=== PATIENT | female | born 1950 | race Caucasian/White ===

== ENCOUNTER 2017-12-26 14:57 | Emergency (ER) | payer OTHER, MEDICARE ==
--- NOTE | 2017-12-26 15:18 | CPEKG ---
Heart Rate: 70 RR Interval: 857 P-R Interval: 164 QRSD Interval: 78 QT Interval: 372 QTC Interval: 402 P [place]: 77 QRS [place]: 56 T Wave [place]: 48 EKG Severity - NORMAL ECG - EKG Impression: SINUS RHYTHM Electronically Signed By: Robert Mosquera 28-Dec-2017 12:51:35
--- NOTE | 2017-12-26 15:48 | EDPHY ---
H & P Stated Complaint: chest pain starting yesterday, ashtma symptoms for past week Time Seen by Provider: 12/26/17 15:48 HPI/ROS: CHIEF COMPLAINT: Wheezing HISTORY OF PRESENT ILLNESS: This is a 67-year-old female with a history of reactive airway disease for which she takes Dulera and Xopenex MDI. She went for months without any symptoms but in November had a return of wheezing. She did not have improvement at that time with her usual breathing treatments and ultimately took a round of clindamycin followed by a Z-Clay. She recovered but last week again developed wheezing. She has had worsening of the wheezing over the last few days. She notes some left-sided pain when breathing. She has had a persistent dry cough. No fever. She notes that her Xopenex is not helping her. She has used several times today with no improvement. She continues to use her Dulera twice daily. Although she is reporting some left-sided chest discomfort she feels that it is directly related to her breathing difficulty. She is not concerned about a cardiac problem. She leads an active lifestyle and has no chest pain with exertion. She specifically states that she does not want a cardiac workup. REVIEW OF SYSTEMS: A ten point review of systems was performed and is negative with the exception of the items mentioned in the HPI. Past medical history: Reactive airway disease Social history: She is an amateur freelance photographer. She lives with her partner Micaela who is a doctor of chiropractic. She does not use tobacco or alcohol. She travels extensively and is very active. General Appearance: Alert. Vital signs reviewed. Blood pressure 159/89. Oxygen saturation 92% on room air. Frequent dry cough. Eyes: Pupils equal and round, no conjunctival injection, no discharge. Anicteric. ENT, Mouth: Mucous membranes are moist, no oropharyngeal erythema or edema. Neck: No lymphadenopathy, supple. Respiratory: Expiratory wheezes. Speaking in full sentences. Cardiovascular: Regular rate and rhythm; no murmur, rub, or gallop. Gastrointestinal: Abdomen is soft and nontender, no masses or organomegaly, bowel sounds normal. Skin: Warm and dry, no rashes on exposed skin, normal color. Back: Nontender to palpation over the thoracolumbar spine. Extremities: No lower extremity edema, no calf tenderness or swelling. Neurological: Alert and oriented. Moving all four extremities easily and equally. Psychiatric: Normal affect. - Personal History Current Tetanus/Diphtheria Vaccine: No Current Tetanus Diphtheria and Acellular Pertussis (TDAP): No - Medical/Surgical History Hx Asthma: Yes Hx Chronic Respiratory Disease: No Hx Diabetes: No Hx Cardiac Disease: No Hx Renal Disease: No Hx Cirrhosis: No Hx Alcoholism: No Hx HIV/AIDS: No Hx Splenectomy or Spleen Trauma: No Other PMH: asthma - Social History Smoking Status: Never smoked Constitutional: Initial Vital Signs Temperature (C) 37 C 12/26/17 15:00 Heart Rate 72 12/26/17 15:00 Respiratory Rate 20 12/26/17 15:00 Blood Pressure 159/89 H 12/26/17 15:00 O2 Sat (%) 92 12/26/17 15:00 O2 Delivery Mode Room Air Allergies/Adverse Reactions: acetaminophen [From Tylenol] Allergy (Verified 12/26/17 15:00) aspirin Allergy (Verified 12/26/17 15:00) hydrocortisone [From Solu-Cortef] Allergy (Verified 12/26/17 15:00) pain medications Allergy (Uncoded 12/26/17 15:00) Home Medications: Medication Instructions Recorded Amoxicillin/Clavulanate Pot 875 mg PO BID #14 tab 12/26/17 [Augmentin 875 MG TAB (*)] Azithromycin 250 mg PO DAILY #6 tablet 12/26/17 Dulera 100 Mcg/5 Mcg Inhaler 12/26/17 Xopenex 12/26/17 Medical Decision Making - Diagnostics EKG Interpretation: 12 lead EKG is interpreted in Trace master View by emergency department physician. ED Course/Re-evaluation: Expiratory wheezing in patient with history of reactive airway disease. She has a problem with albuterol and uses Xopenex. A Xopenex nebulizer treatment has been ordered for her. Chest x-ray shows a left lower lobe opacity, likely a pneumonia. She received a Xopenex nebulizer in the emergency department. Exam afterwards shows some continued, but improved, wheezing with good air exchange and no hypoxia. She does not want to take steroids. She will be discharged home on oral antibiotics. She is a good candidate for home treatment of her pneumonia. She will continue with her breathing medications. She will follow up with Dr. Whatley. Danger signs that should prompt her to return to the emergency department were reviewed with her. Differential Diagnosis: Shortness of breath including but not limited to pulmonary infectious process, COPD, asthma, pulmonary embolus and congestive heart failure. - Data Points Medications Given: Discontinued Medications Levalbuterol (Xopenex 1.25mg Neb) 1.25 mg IH EDNOW ONE Stop: 12/26/17 16:47 Last Admin: 12/26/17 17:14 Dose: 1.25 mg Departure - Departure Disposition: Home, Routine, Self-Care Clinical Impression: Pneumonia Qualifiers: Pneumonia type: due to unspecified organism Laterality: left Lung location: lower lobe of lung Qualified Code(s): J18.1 - Lobar pneumonia, unspecified organism Reactive airway disease Qualifiers: Asthma severity: mild Asthma persistence: intermittent Asthma complication type : with acute exacerbation Qualified Code(s): J45.21 - Mild intermittent asthma with (acute) exacerbation Condition: Good Instructions: Asthma (ED), Community Acquired Pneumonia (ED) Additional Instructions: Continue your Dulera and Xopenex breathing treatments. I am prescribing 2 antibiotics, Augmentin and azithromycin. Take these as prescribed. Follow up with Dr. Whatley. Call her office tomorrow to schedule an appointment next week. Return if you have worsening shortness of breath or any new and concerning symptoms. Referrals: Vika Whatley MD [Primary Care Provider] - As per Instructions Prescriptions: Amoxicillin/Clavulanate Pot [Augmentin 875 MG TAB (*)] 875 mg PO BID #14 tab Azithromycin 250 mg PO DAILY #6 tablet
[2017-12-26] MEDS ORDERED: LEVALBUTEROL 1.25 MG/3 ML DEYVIAL IH ONE (16:46)
[2017-12-26 17:33] VITALS: BP 127/77
== END 2017-12-26 17:41 | disposition home or self-care (01) ==
DX: J45.21 Mild intermittent asthma with (acute) exacerbation (principal); J18.1 Lobar pneumonia, unspecified organism

== ENCOUNTER → 2018-06-18 | Outpatient (CLI) | payer OTHER, MEDICARE | LOC: BMCIMAGING 13:17 | PROVIDERS: ATTEND Allergy & Immunology Allergy | DX: Z09 Encounter for follow-up examination after completed treatment for conditions other than malignant neoplasm (principal); Z87.01 Personal history of pneumonia (recurrent) | CPT/HCPCS: 82784-90; 82787-90; 86682-90 ==